=== PATIENT | male | born 1975 | race African-American/Black ===

== ENCOUNTER 2019-10-18 20:59 | Emergency (ER) | payer OTHER ==
[2019-10-18 21:12] VITALS: BP 132/90; PULSE 73; TEMP 98.2; BMI 23.7
[2019-10-18] MEDS ORDERED: SULFAMETHOXAZOLE/TRIMETHOPRIM 800MG/160MG D.S. TABLET PO ONE (21:16)
[2019-10-18] MEDS ORDERED: IBUPROFEN 600 MG TABLET (FP) PO ONE ×2 (21:17→21:21)
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
[2019-10-18] MEDS ORDERED: SULFAMETHOXAZOLE/TRIMETHOPRIM 800MG/160MG D.S. TABLET ONE (21:21)
== END 2019-10-18 21:28 | disposition home or self-care (01) ==
LOC: FER 20:59
DX: S61.051A Open bite of right thumb without damage to nail, initial encounter (principal); Y04.1XXA Assault by human bite, initial encounter; Y93.89 Activity, other specified; Y92.159 Unspecified place in reform school as the place of occurrence of the external cause; Y99.0 Civilian activity done for income or pay; Z88.0 Allergy status to penicillin; Z91.013 Allergy to seafood
CPT/HCPCS: 99283-25